=== PATIENT | female | born 1955 | race Caucasian/White ===

== ENCOUNTER 2024-12-02 10:02 | Emergency (ER) | payer BC, MEDICARE | END 2024-12-02 10:54 | disposition home or self-care (01) | LOC: ERS 10:02 | DX: Z45.89 Encounter for adjustment and management of other implanted devices (principal); I10 Essential (primary) hypertension; Z55.6 Problems related to health literacy; Z75.3 Unavailability and inaccessibility of health-care facilities; Z79.899 Other long term (current) drug therapy | CPT/HCPCS: 43762; 74022 ==